=== PATIENT | female | born 2000 | race Caucasian/White ===

== ENCOUNTER 2024-12-06 22:22 | Emergency (ER) | payer MEDICAID, SELFPAY ==
[2024-12-06 22:59] VITALS: BP 124/85; PULSE 97; RESP 22; TEMP 36.6; O2SAT 99; BMI 35.4
--- NOTE | 2024-12-06 23:24 | HMH.EDGENADL ---
Discharge Plan Disposition Patient Disposition: Home, Self-Care Referrals Follow up/Referrals: Ignacio Ross DO [Staff Physician, Orthopedics] - See instructions Provider,Referral, MD [Primary Care Provider, Medical] - See instructions Activity Restrictions/Add. Instructions Additional Instructions/Restrictions: Please follow-up with Dr. Ross's office for reassessment. Please use the walking boot on your right side and keep your left 1st and 2nd toes ubck taped for support. Recommend using a hard soled shoe on the left to help prevent further trauma to the toe and limit bending at the toe joint to promote healing. Clinical Impressions Clinical Impression: Closed fracture of left great toe Qualifiers: Encounter type: initial encounter Phalanx: proximal Fracture alignment: nondisplaced Qualified Code(s): S92.415A - Nondisplaced fracture of proximal phalanx of left great toe, initial encounter for closed fracture Avulsion fracture of lateral malleolus Qualifiers: Encounter type: initial encounter Fracture type: closed Laterality: right Qualified Code(s): S82.61XA - Displaced fracture of lateral malleolus of right fibula, initial encounter for closed fracture Print Language Print Language: Portuguese Discharge ED Provider: Shaheed Rico Adult HPI General Chief complaint: Fall Stated complaint: A/O 12-06 fell off porch hurt both legs Time Seen by Provider: 12/06/24 23:24 Mode of Arrival: Ambulatory Source of Information: Significant Other Description of Symptoms (Recalled from ER Triage Doc. by RN): Patient ambulatory to ED with significant other who states that she fell off of her porch at 2044. Patient states that she rolled her right ankle falling onto knee. She also reports that her left big toe is in extreme pain. Swelling noted to right ankle. Denies hitting head, denies LOC. History of Present Illness HPI narrative: 24-year-old female with history of bilateral salpingectomy presents for lower extremity pain after a fall. She reports she tripped and fell on her porch, landing on her left knee, rolling her right ankle and now with toe in her left great toe. She reports she has been able to hobble around on it over the last little bit but it has been hurting. She did not take anything prior to arrival. Reports normal sensation. Unknown last tetanus shot. Related Data Allergies Allergy/AdvReac Type Severity Reaction Status Date / Time No Known Allergies Allergy Verified 12/06/24 23:13 [facility] Disclaimer: The information contained in this section may have been updated after the patient was seen, as this information can be updated by other users. Social History Smoking Status: Current every day smoker alcohol intake: never current occupational status: other Travel in the last 8 weeks?: None ROS Obtained: Yes All systems reviewed & no additional complaints except as documented Physical Exam General General appearance: alert and in no apparent distress Head Head exam: atraumatic and normocephalic Eye Eye exam: Present normal appearance, PERRL and EOMI ENT ENT exam: Present normal oropharynx and normal external ear exam Neck Neck exam: Present normal inspection and full ROM Chest Chest inspection: Present normal inspection and symmetric chest wall rise; Absent tenderness Respiratory Respiratory exam: Present normal lung sounds bilaterally; Absent respiratory distress Cardiovascular Cardiovascular exam: Present regular rate and normal rhythm Abdominal Exam Abdominal exam: Present soft; Absent distention, tenderness or guarding Extremities Exam Extremities exam: Present tenderness, joint swelling (Right lateral malleolus swelling and tenderness. No tenderness to the bilateral tib-fib's. No tenderness in the right foot.) and other (Abrasion and tenderness to the left knee. Mild bruising to the left great toe. Straight leg raise intact, no lateral instability of the knee. Flexion extension of the toe intact w/ pain.) Back Exam Back exam: Present normal inspection; Absent tenderness Neurological Exam Neurological exam: Present alert and oriented X3; Absent motor sensory deficit Psychiatric Psychiatric exam: Present normal affect and normal mood Skin Skin exam: Present warm, dry and normal color Lymphatic Lymphatic Findings: no adenopathy Medical Decision Making Medical Records Medical records reviewed: Yes I reviewed the patient's medical records. Screening: Per USPSTF and CDC recommendations, given the prevalence of disease in our region, it is our hospital?s policy to screen for HIV and viral Hepatitis for all patients aged 18 and over and those with ongoing risk factors. [place] Inquiry Pt receiving controlled substance: No [place] was queried for this patient: No Vital Signs: 12/06/24 22:59 Temperature 97.8 F Temperature Source Oral Pulse Rate [Right] 97 H Respiratory Rate 22 Blood Pressure [Right Arm] 124/85 Blood Pressure Mean [Right Arm] 98 Blood Pressure Source [Right Arm] Automatic Cuff Blood Pressure Position [Right Arm] Sitting 02 Sat by Pulse Oximetry 99 Oxygen Delivery Method Room Air Lab Data Lab results reviewed: Yes I reviewed the patient's lab results. Orders (Tests/Meds): ED MEDICATIONS Discontinued Medications Generic Name Dose Route Start Last Admin Trade Name Iain PRN Reason Stop Dose Admin Acetaminophen 1,000 mg 12/06/24 23:28 12/06/24 23:44 Acetaminophen 500mg Tab PO 12/06/24 23:29 1,000 mg ONCE ONE Administration Ketorolac Tromethamine 30 mg 12/06/24 23:28 12/06/24 23:45 Ketorolac 30mg/Ml Vial IM 12/06/24 23:29 30 mg ONCE ONE Administration Tetanus/Reduced Diphtheria/Acell Pertussis 0.5 ml 12/06/24 23:28 12/06/24 23:45 Tet/Diphth/Pert-Adult 0.5ml Syringe IM 12/06/24 23:29 0.5 ml .ONCE ONE Administration ORDERS Category Date Time Status Ankle XR -Right minimum 3 Views [XR ankle RT min 3V] Exams 12/06/24 23:28 Completed Stat Foot XR left minimum 3 views [XR foot LT min 3V] Stat Exams 12/06/24 23:28 Completed Foot XR right minimum 3 views [XR foot RT min 3V] Stat Exams 12/06/24 23:28 Completed Knee XR left 4 views [XR knee LT 4V] Stat Exams 12/06/24 23:28 Completed Tibia/fibula XR right 2 views [XR tibia fibula RT 2V] Exams 12/06/24 23:28 Completed Stat Medical Decision Narrative: 24-year-old female with history of bilateral salpingectomy presents for bilateral lower extremity pain after a mechanical fall. History was obtained via interactive discussion with patient. On arrival, patient is [afebrile, hemodynamically stable, satting appropriately, alert, oriented x4, GCS 15], moving all extremities spontaneously. Full physical exam performed and significant for findings as documented above, left knee abrasion and tenderness, left great toe tenderness, right ankle swelling, neurovascularly intact. Differential includes but is not limited to fracture dislocation neurovascular/ligamentous injury. Patient was given Tdap, Tylenol, Toradol for symptomatic management and correction of underlying abnormalities. Workup initiated including radiographs of the affected extremities. On re-evaluation, patient [remains afebrile, HD stable.] Imaging independently interpreted by me and significant for fracture of the proximal phalanx of the left great toe. There is a small avulsion fracture of the right lateral malleolus. See radiology read for full review of final results. Given patient history, exam and workup, patient's presentation most likely represents fracture of the great toe, avulsion fracture of the ankle. Patient was discharged in stable condition with a walking boot for her right ankle and a hard soled shoe of her left foot, the left great toe was buck taped. patient instructed to follow-up with Dr. Ross's office. Procedures Risk/Benefits of Procedure(s) Were Explained: Yes Critical Care Critical Care Time Critical Care Time: No
--- NOTE | 2024-12-06 23:28 | XR_ITS ---
PROCEDURE INFORMATION: Exam: XR Right Foot Exam date and time: 12/06/2024 11:46 PM Age: 24 years old Clinical indication: Pain; Foot; Right; Additional info: Fall, right foot pain TECHNIQUE: Imaging protocol: Radiologic exam of the right foot. Views: 3 or more views. COMPARISON: None available. FINDINGS: Bones/joints: Chronic avulsive changes are noted at lateral malleolus. A heel spur is present. An enthesophyte is noted at the Achilles tendon insertion site. Slight irregularity of the dorsal navicular bone is nonspecific, potentially related to chronic avulsive injuries. Soft tissues: Unremarkable. IMPRESSION: Slight irregularity of the dorsal navicular bone is nonspecific, potentially related to chronic avulsive injuries. No acute fracture identified.
--- NOTE | 2024-12-06 23:28 | XR_ITS ---
PROCEDURE INFORMATION: Exam: XR Left Knee Exam date and time: 12/06/2024 11:46 PM Age: 24 years old Clinical indication: Pain; Knee; Left; Additional info: Fall onto left knee TECHNIQUE: Imaging protocol: Radiologic exam of the left knee. Views: 4 or more views. COMPARISON: CR XR FOOT LT MIN 3V 12/06/2024 11:46 PM FINDINGS: Bones/joints: Unremarkable. Soft tissues: Unremarkable. IMPRESSION: No acute findings.
--- NOTE | 2024-12-06 23:28 | XR_ITS ---
PROCEDURE INFORMATION: Exam: XR Right Tibia and Fibula Exam date and time: 12/06/2024 11:46 PM Age: 24 years old Clinical indication: Pain; Lower leg; Right; Additional info: Fall, ankle pain TECHNIQUE: Imaging protocol: Radiologic exam of the right tibia and fibula. Views: 2 views. COMPARISON: CR XR ANKLE RT MIN 3V 12/06/2024 11:46 PM FINDINGS: Bones/joints: Chronic avulsive changes are noted at lateral malleolus. Soft tissues: Unremarkable. IMPRESSION: No acute fracture identified.
--- NOTE | 2024-12-06 23:28 | XR_ITS ---
PROCEDURE INFORMATION: Exam: XR Left Foot Exam date and time: 12/06/2024 11:46 PM Age: 24 years old Clinical indication: Pain; Foot; Left; Additional info: Fall, great toe pain TECHNIQUE: Imaging protocol: Radiologic exam of the left foot. Views: 3 or more views. COMPARISON: None available. FINDINGS: Bones/joints: Transverse fracture of the distal metaphysis of the proximal phalanx of the 1st toe with slight medial impaction. Favor acute fracture. A heel spur is present. Soft tissues: Unremarkable. IMPRESSION: Transverse fracture of the distal metaphysis of the proximal phalanx of the 1st toe with slight medial impaction. Favor acute fracture. Recommend correlation for focal tenderness.
--- NOTE | 2024-12-06 23:28 | XR_ITS ---
PROCEDURE INFORMATION: Exam: XR Right Ankle Exam date and time: 12/06/2024 11:46 PM Age: 24 years old Clinical indication: Pain; Ankle; Right; Additional info: Fall, ankle pain TECHNIQUE: Imaging protocol: Radiologic exam of the right ankle. Views: 3 or more views. COMPARISON: None available. FINDINGS: Bones/joints: Chronic avulsive changes are noted at lateral malleolus. Suspect tiny acute avulsion fracture of the lateral talus at ligamentous insertion site in the lateral ankle. Incomplete lucency of the base of the 5th metatarsal seen only on the oblique image of this exam is not apparent on foot radiograph. Incomplete fracture is conceivable but not specifically favored. A heel spur is present. An enthesophyte is noted at the Achilles tendon insertion site. Suspect longstanding chronic avulsive changes of the dorsal navicular bone. Soft tissues: Lateral soft tissue swelling is evident. IMPRESSION: 1. Suspect tiny acute avulsion fracture of the lateral talus at ligamentous insertion site in the lateral ankle. 2. Incomplete lucency of the base of the 5th metatarsal seen only on the oblique image of this exam is not apparent on foot radiograph. Incomplete fracture is conceivable but not specifically favored. Consider conservative management and followup radiographs in 7-10 days. 3. Lateral soft tissue swelling is evident.
--- OUTSIDE RECORDS SUMMARY | 2024-12-06 23:34 | XMS_ITS | Clinical Summary ---
Author Organization [facility] are Address [address] [place] [address] Phone Care Team Providers Care Vp Genetic Name Role Phone Unavailable Unavailable Conditions or Problems No information available. Medications No information available. Medications Administered No information available. Allergies, Adverse Reactions, Alerts No information available. Results No information available. Plan of Care No information available. Procedures No information available. Vital Signs No information available. Immunizations No information available. Advance Directives No information available.
--- OUTSIDE RECORDS SUMMARY | 2024-12-06 23:35 | XMS_ITS | Clinical Summary ---
Author Organization [facility] Address [address] [place] [address] Care Team Providers Care X Ray Examiner Of Aircraft Name Role Phone Provider, No Known Primary Care Provider Unavail able Allergies No known active allergies Medications ibuprofen (ADVIL,MOTRIN) 800 MG tablet Take 1 tablet by mouth Every 8 (Eight) Hours As Needed for Mild Pain. 15 tablet Active ondansetron (ZOFRAN) 4 MG tablet Take 1 tablet by mouth Every 8 (Eight) Hours As Needed for Nausea or Vomiting. 12 tablet Active Additional Information Patient not taking.Informant: Self, Reported on 08/02/2024 Active Problems Problem Noted Date Diagnosed Date anemia 04/12/2022 S/P section 04/11/2022 Maternal care for breech presentation, single ge station 04/10/2022 Splenomegaly 03/19/2021 Resolved Problems Problem Noted Date Diagnosed Date Resolved Date Calculus of gallbladder with chronic cholecystitis without obstruction 07/06/20242024 Recurrent biliary colic 07/06/2024 04/2 04/2024 Normal labor 04/11/2022 04/11/2022 38 weeks gestation of 04/10/2022 04/11/2022 False labor before 37 comple malaika weeks of gestation during in third trimester, antepartum 03/29/2022 04/10/2022 05/15/2021 04/11/2022 (spontaneous vaginal delivery) 05/15/2021 03/17/2022 Encounters Date Type Department Care Team Description 09/06/[address] [facility] GENERAL SURGERY [address] [facility] [address] [place] [phone] Thao Vazquez MD from Last 3 Months Family History Medical History Relation Name Comments Cervical cancer Maternal Grandmother Stroke Maternal Grandmother Hypertension Paternal Grandfather Relation Name Status Comments Maternal Grandmother Paternal Grandfather Social History Tobacco Use Types Packs/Day Years Used Date Smoking Tobacco: Every Day Cigarettes 0.5 2.6 Started: 2022 Passive Smoke Exposure: Current Smokeless Tobacco: Never Tobacco Cessation:Ready to Q uit: Not Asked; Counseling Given: Not Answered Alcohol Use Standard Drinks/Week Comments No 0 (1 standard drink = 0.6 oz pur e alcohol) [place] Depression Scale Answer Date Recorded Retired [place] Depression Score 2 04/11/2022 Retired EPD Scale: Thought of Harming Self Unrec ognized value 04/11/2022 Abuse Screen Answer Date Recorded Feels Unsafe at Home or Work/School no 08/30/2024 Feels Threatened by Someone no 09/2024 Does Anyone Try to Keep You From Having Contact with Others or Doing Things Outside Your Home? no 08/30/2024 Physical Signs of Abuse Present no 08/30/2024 Education Answer Date Recorded What is the highest level of school you have completed or the highest degree you have received? 11th grade 03/21/2022 Comments No Sex and Gender Information Value Date Recorded Sex Assigned at Not on file Legal Sex Female 10:59 AM EDT Gender Identity Not on file Sexual Orientation Not on file Occupation Industry Job Start Date Job End Date Not on file Not on file Not on file Last Filed Vital Signs Vital Sign Reading Time Taken Comments Blood Pressure 124/92 08/30/2024 9:08 PM EDT Pulse 92 08/30/2024 9:08 PM EDT Temperature 36.9 C (98.5 F) 08/30/2024 9:08 PM EDT Respiratory Rate 18 08/30/2024 9:08 PM EDT Oxygen Saturation 98% 08/30/2024 9:08 PM EDT Inhaled Oxygen Concentration - - Weight 91.4 kg (201 lb 6.4 oz) 08/30/2024 9:08 P M EDT Height 154.9 cm (5' 1 ) 08/30/2024 9:08 PM EDT Body Mass Index 38.05 08/30/2024 9:08 PM EDT Plan of Treatment Health Maintenance Due Date Last Done Comments Annual Gynecologic Pelvic and Breast Exam 2000 ANNUAL PHYSICAL 01/13/2018 Pneumococcal Vaccine 0-49 (1 of 2 - PCV) 01/03/2019 COVID-19 Vaccine (1 - season) 2023 INFLUENZA VACCINE 01/25/2025 06/19/2015, , 01/15/2010, Additional history exists PAP SMEAR 02/12/2025 02/12/2022 TDAP/TD VACCINES (2 - Td or Tdap) 05/11/2029 05/11/2019 HPV VACCINES Completed 06/21/2013, 02/17/2012 CHLAMYDIA SCREENING Discontinued 10/19/2023, 02/12/2022, 11/30/2019 HEPATITIS C SCREENING Completed 10/19/2023 , 02/25/2022, 09/13/2020 MENINGOCOCCAL B VACCINE Aged Out No l onger eligible based on patient's age to complete this topic Medical Devices Implanted Type Area Electrical Logger Device Identifier Shelf Expiration Date Model / Serial / Lot Clip Lig Hemolok Pa Lg 6ct Prp - [id number] Implanted:Qty : 1 on 07/25/2024 by Thao Vazquez MD at [facility] Implant N/A: Abdomen TELE[employer]LEX MEDICAL 04/02/2029 [id number] / / [id number] Procedures Procedure Name Priority Date/Time Associated Diagnosis Comments NUSWAB VG+ Routine 10/19/2023 2:14 PM EDT Routine screening for STI (sexually transmitted infection) HEPATITIS C ANTIBODY Routine 10/19/2023 2:14 PM EDT Routine screening for STI (sexually transmitted infection) LIQUID-BASED PAP SMEAR, [facility]) Routine 02/12/2022 11:52 AM EDT Encounter for supervision of other normal in third trimester from Last 3 Months or Most Recently Relevant to Health Maintenance Results * (ABNORMAL) NuSwab VG+ - Swab, Vagina (10/19/2023 2:14 PM EDT) Atopobium Vaginae High - 2(A) Score [facility] B BVAB 2 High - 2(A) Score [facility] Megasphaera 1 High - 2(A) Score [facility] Comment: Calculate total score by adding the 3 individual bacterial vaginosis (BV) marker scores together. Total score is interpreted as follows: Total score 0-1: Indicates the absence of BV. Total score 2: Indeterminate for BV. Additional clinical data should be evaluated to establish a diagnosis. Total score 3-6: Indicates the presence of BV. Mayte Albicans, PRACHI Negative Negative [facility] Mayte Glabrata, PRACHI Negative Negative [facility] Trichomonas vaginosis Negative Negative [facility] Chlamydia trachomatis, PRACHI Negative Negative [facility] Neisseria gonorrhoeae, PRACHI Negative Negative [facility] Swab Vaginal structure / Unknown 10/19/2023 2:14 PM EDT 10/19/2023 Comment:[place] [facility] (AMBULAT[facility]) - 10/21/2023 6:12 AM EDT Test(s) 804716- Atopobium vaginae; 173018- BVAB 2; 446961- Megasphaera 1 was developed and its performance characteristics determined by [facility]. It has not been cleared or approved by the Food and Drug Administration. Test(s) 301820-Zlcmmxt albicans, PRACHI; 041115-Rgsixge glabrata, PRACHI was developed and its performance characteristics determined by [facility]. It has not been cleared or approved by the Food and Drug Administration. Performed at: 01 - [address] [id number] Sales And Operations Trainee: Tonia Castillo MD, Phone: [phone] Tiesha Beach PA-C MICROBIOLOGY - GENERAL AVERY POWELL Final Result [facility] ([facility]UL[facility]) [address] [place] [address], [place] [phone] [facility] [address] [place] [address], [place] [phone] * Hepatitis C Antibody (10/19/2023 2:14 PM EDT) Pathologist [facility] Hep C Virus Ab Non Reactive Non Reactive [facility] Comment: HCV antibody alone does not differentiate between previously resolved infection and active infection. Equivocal and Reactive HCV antibody results should be followed up with an HCV RNA test to support the diagnosis of active HCV infection. Blood 10/19/2023 2:14 PM EDT 10/19/2023 Comment:[place] Narrative [facility] ([facility]UL[facility]) - 10/21/2023 6:12 AM EDT Performed at: 02 - [facility] [address] [place] [id number] Sales And Operations Trainee: José Antonio Rosales PhD, Phone: [phone] Tiesha Beach PA-C LAB BLOOD ORDERABLES Final Result [facility] ([facility]) [address] [place] [address], [facility] [address] [place] [address], * LIQUID-BASED PAP SMEAR, [facility]) (02/12/2022 11:52 AM EDT) [facility] Reference Lab Report [facility] [address] [place] [address] or [phone] Clifford Le M.D., [employer] PATIENT NAME LABORATORY NO. BENSON CHANG [id number] AGE SEX SSN CLIENT REF # [id number] ALESSANDRON YULISSA 22 2000 F [id number] [address] [facility] 3 REQUESTING Alise ATTENDING M.D. COPY TO. [place] [address] DATE COLLECTED DATE RECEIVED DATE REPORTED 02/12/2022 02/12/2022 02/18/2022 Cytology Thin Prep DIAGNOSIS: Negative for intraepithelial lesion or malignancy Multiple factors can influence accuracy of Pap tests; therefore, screening at regular intervals is necessary for early cancer detection. COMMENT: Benign cellular changes associated with inflammation are present. Benign cellular changes associated with reactive/reparativ e changes are present. Professional interpretation rendered by Rick Luevano D.O. at [employer], [address] [place] [address]. SPECIMEN ADEQUACY: SATISFACTORY FOR EVALUATION Transformation zone is absent or insufficient. Data is conflicting on the significance of ECC/TZ elements, an annual repeat Pap smear is suggested. SOURCE OF SPECIMEN: CERVICAL SLIDES: 1 CLINICAL HISTORY: Encounter for supervision of other normal in third trimester SECTION HAND HELPER: TAE MIXON (ASCP) REVIEWED, DIAGNOSED AND ELECTRONICALLY SIGNED BY: Rick Luevano D.O. CPT CODES: [id number], [id number] 02/18/2022 3:52 PM EDT [facility] ThinPrep Vial Cervix uteri structure / Unknown Collection / Unknown 02/12/2022 11:52 AM EDT 02/12/2022 11:52 AM EDT Kathrin Lindsay MD PATHOLOGY/CYTOLOGY ORDERABLES Final Result [facility]
[address] [place] [address], from Last 3 Months or Most Recently Relevant to Health Maintenance Insurance [employer] MEDICAID [place] Advance Directives * CPR (Attempt to Resuscitate) (Latest Code Status on File) Date Activated Date Inactivated Comments 04/11/2022 4:41 AM 04/13/2022 3:41 PM Question Answer Comments Code Status (Patient has no pulse and is not breathing): CPR (Attempt to Resuscitate) Medical Interventions (Patie nt has pulse or is breathing): Full * CPR (Attempt to Resuscitate) Date Activated Date Inactivated Comments 05/15/2021 7:52 PM 05/17/2021 3:38 PM Question Answer Comments Code Status (Patient has no pulse and is not breathing): CPR (Attempt to Resuscitate) Medical Interventions (Patie nt has pulse or is breathing): Full Level Of Support Discussed With: Patient * CPR (Attempt to Resuscitate) Date Activated Date Inactivated Comments 05/15/2021 4:12 AM 05/15/2021 7:52 PM Question Answer Comments Code Status (Patient has no pulse and is not breathing): CPR (Attempt to Resuscitate) Medical Interventions (Patie nt has pulse or is breathing): Full Level Of Support Discussed With: Patient Care Teams X Ray Examiner Of Aircraft Relationship Specialty Start Date End Date Provider, No Known [facility] [place] [address] PCP - General 03/21/22
[2024-12-06] MEDS: ACETAMINOPHEN 500MG TAB 1000 MG PO (23:44)
[2024-12-06] MEDS: KETOROLAC 30MG/ML VIAL 30 MG IM (23:45)
[2024-12-06] MEDS: TET/DIPHTH/PERT-ADULT 0.5ML SYRINGE 0.5 ML IM (23:45)
[2024-12-07 01:24] VITALS: BP 116/68; PULSE 80; RESP 16; TEMP 36.6; O2SAT 97
== END 2024-12-07 01:25 | disposition home or self-care (01) ==
PROVIDERS: Emergency Provider Emergency Medicine
DX: S82.61XA Displaced fracture of lateral malleolus of right fibula, initial encounter for closed fracture (principal); S92.402A Displaced unspecified fracture of left great toe, initial encounter for closed fracture; W01.10XA Fall on same level from slipping, tripping and stumbling with subsequent striking against unspecified object, initial encounter
CPT/HCPCS: 73564; 73590; 73610; 73630; 90471; 90715; 96372; 99284; J1885